=== PATIENT | female | born 1945 | race Two or more races ===

== ENCOUNTER 2019-09-15 05:49 | Day surgery (SDC) | payer OTHER ==
[~2019-09-15 05:49] MED LIST: FOLIC ACID PO; PANTOPRAZOLE SO20 MG PO; PRAVASTATIN SOD20 MG PO; TOPROL XL50 M1 PO; VITAMIN B12 PO; VITAMIN C100 MG PO; VITAMIN D3 PO
== END 2019-09-15 10:15 | disposition home or self-care (01) ==
LOC: CIR.AMB 05:49
PROVIDERS: ATTEND Anesthesiology Pain Medicine
DX: M51.24 Other intervertebral disc displacement, thoracic region (principal)